=== PATIENT | female | born 1950 | race Caucasian/White ===

== ENCOUNTER → 2016-10-18 | Outpatient (CLI) | payer MEDICARE ==
[~2016-10-18] MED LIST: AMLO10TA82 PO; ARIP5TAB5 PO; FLUO60TA PO; LSNP20T PO; MTP25TSR PO; OMEP40CA36 PO; SUCR1TAB29 PO; bp meds
--- NOTE | 2016-10-18 18:42 | Diagnostic Imaging Report ---
INDICATION: Right hip pain times at least a year TECHNIQUE: 2 views of the right hip. CORRELATION STUDY: 12/07/2014 FINDINGS: There has been no significant adverse change but the appearance about the right hip. There is is now essentially complete absence of the joint space. There is some volume loss of the femoral head. There is rather pronounced progressive sclerosis and cystic change about the acetabulum and femoral head. No acute fracture. IMPRESSION: 1. Rather pronounced abnormal appearance about the right hip. This has changed significantly since the study of nearly 2 years earlier. Features favor likely rather markedly progressed osteoarthritis about the right hip. Possibility of underlying osteonecrosis of the femoral head is not excluded. Dictated on workstation # [id number]
--- NOTE | 2016-10-18 18:43 | Diagnostic Imaging Report ---
INDICATION: Hip pain x1 year. TECHNIQUE: AP pelvis at 3:25 p.m. CORRELATION STUDY: 12/07/2014. FINDINGS: There has been significant adverse interval change about the right hip. There is essentially complete absence of the joint space, both medially and superiorly. Diffuse sclerosis and cystic change about the femoral head and acetabulum. There is some volume loss of the femoral head. The remainder of the pelvis remains relatively unremarkable. Left hip does demonstrate mild joint space narrowing but otherwise is maintained. Asymmetric sacralization on the left at L5 level. IMPRESSION: Rather pronounced progressive asymmetric abnormal appearance about the right hip. This appears to represent rather pronounced progressive osteoarthritis. Underlying osteonecrosis is not excluded with some volume loss of the femoral head. There is essentially complete absence of the joint space. Dictated on workstation # [id number]
== END ==
LOC: RAD 15:06
PROVIDERS: ATTEND Orthopaedic Surgery
DX: M25.551 Pain in right hip (principal)
CPT/HCPCS: 72170; 73502